=== PATIENT | male | born 1950 | race Caucasian/White ===

== ENCOUNTER 2022-09-13 15:27 | Emergency (ER) | payer MEDICARE, OTHER ==
[2022-09-13 15:55] VITALS: BP 109/83; PULSE 106
== END 2022-09-13 15:52 | disposition left against medical advice (07) ==
LOC: DL.ED 15:27
DX: F03.90 Unspecified dementia, unspecified severity, without behavioral disturbance, psychotic disturbance, mood disturbance, and anxiety (principal); Z53.29 Procedure and treatment not carried out because of patient's decision for other reasons; I25.119 Atherosclerotic heart disease of native coronary artery with unspecified angina pectoris; E78.00 Pure hypercholesterolemia, unspecified; I10 Essential (primary) hypertension; I25.2 Old myocardial infarction; E66.9 Obesity, unspecified; Z68.25 Body mass index [BMI] 25.0-25.9, adult; Z79.82 Long term (current) use of aspirin; Z79.899 Other long term (current) drug therapy
CPT/HCPCS: 99282

== ENCOUNTER 2022-12-01 16:02 | Emergency (ER) | payer MEDICARE, OTHER ==
[2022-12-01] MEDS ORDERED: Sodium Chloride 0.9% 10 ML Syringe FLUSH PRN (16:21)
[2022-12-01 16:25] VITALS: BP 129/83; PULSE 102
[2022-12-01 16:40] LABS: BASOPHILS PERCENT AUTO 0.3 % (0.0-1.0); EOSINOPHILS PERCENT AUTO 0.9 % (1.0-3.0); HEMATOCRIT 33.4 % (40.0-54.0); HEMOGLOBIN 11.2 g/dL (14.0-18.0); LYMPHOCYTES PERCENT AUTO 9.2 % (20.5-50.1); MEAN CORPUSCULAR HEMOGLOBIN 29.6 pg (27.0-34.0); MEAN CORPUSCULAR HGB CONC 33.5 g/dL (33.0-35.0); MEAN CORPUSCULAR VOLUME 88.4 fL (80-100); MONOCYTES PERCENT AUTO 13.8 % (2-8); NEUTROPHILS PERCENT AUTO 75.8 % (42.2-75.2); PLATELET COUNT,PLT 322 10^3/uL (150-450); RED BLOOD CELL COUNT 3.78 10^6/uL (4.6-6.2); WHITE BLOOD CELL COUNT,WBC 5.8 10^3/uL (5.0-10.0)
[2022-12-01 16:59] LABS: ALBUMIN 2.5 g/dL (3.4-5.0); ANION GAP 11.4 mEq/L (7-13); BILIRUBIN TOTAL 0.3 mg/dL (0.2-1.0); BUN/CREATININE RATIO 16.4 (No establ ref range); CALCIUM 9.2 mg/dL (8.5-10.1); CREATININE 0.73 mg/dL (0.70-1.30); EST CRCL DRUG DOSING (CG) 81.33 mL/min; MAGNESIUM 1.8 mg/dL (1.8-2.4); POTASSIUM,K 3.4 mmol/L (3.5-5.1); PROTEIN TOTAL,TP 7.4 g/dL (6.4-8.2)
[2022-12-01 17:02] LABS: PROTHROMBIN TIME 10.2 SEC (9.0-12.0)
[2022-12-01 17:04] LABS: LACTIC ACID 1.1 mmol/L (0.4-2.0)
[2022-12-01 17:07] LABS: A/G RATIO 0.51; C-REACTIVE PROTEIN 28.8 mg/dL (0.0-0.9)
[2022-12-01 17:42] LABS: APPEARANCE,URINE CLEAR (CLEAR); BILIRUBIN,URINE NEGATIVE (NEGATIVE); COLOR,URINE YELLOW (YELLOW); GLUCOSE,URINE NEGATIVE (NEGATIVE); KETONES,URINE NEGATIVE (NEGATIVE); LEUKOCYTE ESTERASE,URINE NEGATIVE (NEGATIVE); NITRITE,URINE NEGATIVE (NEGATIVE); OCCULT BLOOD,URINE NEGATIVE (NEGATIVE); PH,URINE 7.5 (5.0-9.0); PROTEIN,URINE 100 (NEGATIVE)
[2022-12-01 17:56] LABS: BACTERIA,URINE FEW /HPF (0-FEW/HPF); EPITHELIAL CELLS,URINE FEW /HPF (NOT SEEN); RBC,URINE 0-5 /HPF (0-5); WBC,URINE 0-5 /HPF (0-5/HPF)
[2022-12-01] MEDS ORDERED: cefTRIAXone 2 GM Vial IVPUSH ONE (18:11)
[2022-12-01] MEDS ORDERED: cefTRIAXone 1 GM, Lidocaine 1% 2.1 ML IM ONE ×2 (18:40)
== END 2022-12-01 18:57 | disposition home or self-care (01) ==
LOC: DL.ED 16:02
DX: J18.9 Pneumonia, unspecified organism (principal); E78.00 Pure hypercholesterolemia, unspecified; I25.10 Atherosclerotic heart disease of native coronary artery without angina pectoris; I10 Essential (primary) hypertension; F17.210 Nicotine dependence, cigarettes, uncomplicated; I25.2 Old myocardial infarction; E66.9 Obesity, unspecified; Z68.24 Body mass index [BMI] 24.0-24.9, adult; Z79.82 Long term (current) use of aspirin; Z79.899 Other long term (current) drug therapy
CPT/HCPCS: 36415; 70450; 71045; 80053; 81001; 83605; 83735; 85025; 85610; 86140; 96372; 99284; J0696; J3490